=== PATIENT | female | born 1955 | race Caucasian/White ===

== ENCOUNTER 2017-06-10 07:30 | Inpatient (IN) ==
[~2017-06-10 07:30] MED LIST: ACETAMINOPHEN 500 MG TABLET PO ONE; DEXAMETHASONE 4 MG/ML INJECTION IVP ONE; FAMOTIDINE PB 20 MG/50 ML BAG IV ONE; LIDOCAINE 1% (10mg/ml) 2mL INJ PF SDV ID ONE; MELOXICAM 15 MG TABLET PO ONE; METOCLOPRAMIDE 10mg/2ml INJECTION IVP ONE; ONDANSETRON 4 MG/2 ML INJECTION IVP ONE; SALINE FLUSH 10ml SYRINGE IV PRN; TRANEXAMIC ACID 1,000 MG in NS 100 ML IV ONE
[2017-06-10] MEDS ORDERED: EPINEPHrine PF 0.25 MG, BUPIVACAINE 0.25% PF 30 ML, KETOROLAC INJ 60 MG in NS 30 ML OPSITE ONE (08:00)
[2017-06-10 09:35] VITALS: BMI 27.9
[2017-06-10] MEDS: LR 1,000 ML IV SCH ×2 (09:55→12:47)
[2017-06-10] MEDS: NOZIN NASAL SWAB NAS SCH ×6 (10:05→21:17)
--- NOTE | 2017-06-10 10:56 | Anesthesia Preoperative Report ---
Anesthesia Preoperative Record - Date and Time Date: 06/10/17 Preoperative Diagnosis: Rt ADE M16.11 Proposed Procedure: Right total hip replacement NPO Since Date: 06/10/17 NPO Since Time: 00:00 Allergies/Adverse Reactions: Allergies Allergy/AdvReac Type Severity Reaction Status Date / Time nitrofurantoin Allergy Intermediate Hives Verified 06/10/17 09:53 sulfanilamide Allergy Intermediate Hives Verified 06/10/17 09:53 - Vital Signs Vital Signs: Temperature 98.4 F 06/10/17 09:34 Pulse Rate 72 06/10/17 09:34 Respiratory Rate 15 06/10/17 09:34 Blood Pressure 134/64 06/10/17 09:34 Pulse Oximetry 96 06/10/17 09:34 Height and Weight: Height 5 ft 3 in Weight 71.6 kg Body Mass Index 27.9 - Medications Inpatient Medications: Current Medications Cefazolin Sodium (Kefzol) 1 g IVP PREOP ONE Stop: 06/10/17 11:31 Epinephrine HCl 0.25 mg/Bupivacaine HCl 30 ml/Ketorolac Tromethamine 60 mg/ Sodium Chloride 62.25 mls @ 1 mls/hr OPSITE INTRAOP ONE PRN Reason: Protocol Stop: 06/12/17 22:14 Lactated Ringer's (Lactated Ringers) 1,000 mls @ 50 mls/hr IV .Q20H TRAMAINE Last Admin: 06/10/17 09:55 Dose: 50 mls/hr Isopropyl Alcohol (Nozin Nasal Swab) 1 each KIN Q1M TRAMAINE Stop: 06/10/17 12:03 Last Admin: 06/10/17 10:11 Dose: 1 each Sodium Chloride (Iv Flush) 10 - 80 ml IV PRN PRN PRN Reason: [place] Home Medications: Home Medications Medication Instructions Recorded Confirmed Type Ultram (Tramadol) 50 mg tablet 50 mg PO BID tab 03/16/17 06/10/17 History cyclobenzaprine 10 mg tablet 5 - 10 mg PO HS PRN tab 03/16/17 06/10/17 History Fexofenadine [Maryjo] 180 mg PO DAILY PRN 06/01/17 06/10/17 History Is Patient on Beta [place]?: No - Medical History Respiratory: Reports: Asthma (as a child) DENIES: Sleep Apnea Cardiovascular: DENIES: Abnormal EKG, Angina, Arrhythmia, Congestive Heart Failure, Coronary Artery Disease, Heart Murmur, Hypertension, Hypotension, High Cholesterol, Myocardial Infarction, Rheumatic Fever, Valvular Heart Disease, Other Gastrointestional: Reports: Ulcer (PUD), Other (IBS) Neuro/Musculoskeletal: Reports: HX.MS.OSAR (right hip), Depression (hx-no meds for 15 yrs) Renal/Endocrine: DENIES: Diabetes Mellitus Type 1, Diabetes Mellitus Type 2, Renal Failure, Dialysis, Thyroid Disease, Weight Loss, Weight Gain, Other Other History: DENIES: Anesthesia Reactions, Now, Blood Transfusions, Chemotherapy , Cancer, Hemophilia, Malignant Hyperthermia, Sickle Cell Disease, Other - Surgical History HEENT Surgeries: Reports: Ear Surgery (ventilation tube left ear), Tonsillectomy GI Surgery/Treatments: Reports: Cholecystectomy (lap jena), Colonoscopy ( tubular adenoma), EGD Reproductive Surgery/Treatment: Reports: Hysterectomy Anesthesia Reactions: None Hx Family Anesthesia Reaction: No History of Motion Sickness: No - Social History Smoking Status: Former smoker Substance Use Type: does not use Alcohol Intake Frequency: holidays/special occasions only - Pertinent Findings Laboratory: CBC and BMP 06/10/17 09:44 EKG: Sinus Rhythm - Physical Exam Respiratory Exam: Present: lungs clear, bilateral breath sounds equal Cardiovascular Exam: Present: regular rate and rhythm, no murmur - Airway Assessment Mallampati Score: III TMD: 3 Fingerbreadths Neck Extension: fair Overall Assessment: may be difficult intubation (small mouth opening/large tongue) - ASA ASA Score: 2 - Plan Anesthesia: Neuroaxial Regional/Trunk Block: Spinal - Discussion Discussion: Discussed risks/options/alternatives of anesthesia and questions answered. Patient consents. Nursing pain assessment noted. Present for Discussion: spouse Attestation Statement: Prior to the delivery of any anesthetic medication, I examined the patient, developed the plan, obtained the patient's consent and discussed the risk and benefits of the procedure with the patient/guardian. - Additional Information Seen by Anesthesia: Yes
[2017-06-10] MEDS ORDERED: CEFAZOLIN 1 G INJECTION IVP ONE (11:30)
[2017-06-10] MEDS ORDERED: ANESTHESIA MIXTURE 50 ML IV ONE (11:30)
[2017-06-10] MEDS ORDERED: VANCOMYCIN 1,000 MG INJECTION ONE (11:53)
[2017-06-10] MEDS ORDERED: MIDAZOLAM 2mg/2ml INJECTION ONE (12:10)
[2017-06-10] MEDS ORDERED: VANCOMYCIN 1,000 MG INJECTION IAR ONE (12:44)
[2017-06-10] MEDS ORDERED: LIDOCAINE 2% (100mg/5mL) 5ml PF SDV ONE (12:48)
[2017-06-10] MEDS ORDERED: PHENYLEPHRINE INJ 10 MG/ML VIAL IV ONE (13:34)
--- NOTE | 2017-06-10 13:38 | Operative Note ---
- Procedure Preoperative Diagnosis: Left hip primary degenerative joint disease Postoperative Diagnosis: Same as preoperative diagnosis. Surgeon: Lesley Kohler MD Blueprint Assembler: Thompson Carlson Complications: None. Anesthesia: Spinal. Estimated Blood Loss: See Anesthesia Record. Fluids: Please see Anesthesia Record. Description of Procedure: Mrs. Gutierres and her left hip were identified and marked in the preoperative holding area. She was brought back to the operating suite and spinal anesthetic was administered. She was then placed in a lateral decubitus position with her left hip up. The left lower extremity was prepped and draped in my normal sterile fashion. Timeout was performed. The Emissary robotic arm was used to assist with the surgery. A pelvic array was placed into the iliac crest through three small incisions. A direct superior approach was utilized. An approximately 12 cm incision was made in the skin and dissection carried down to the muscle fascia which was then split in line with skin incision. A The short external rotators were identified and tagged and detached. A capsulotomy was performed and the hip dislocated. A femoral neck osteotomy was performed at the pre-templated level measuring down from the femoral head. The head was removed and acetabulum exposed. Labrum was removed. The acetabulum was then registered with the robot. The robotic arm was then used to ream with a 49 reamer. The robot then was again used to place a 50 Trident cup in 40 of tilt and 22 of anteversion. A liner was then placed. The proximal femur was exposed and prepared with a cookie cutter followed by reaming and broaching to a size 4. We trialed with a 0 head. After thorough irrigation a final Accolade 2 size 4 stem with 127 neck was placed. Leg length and offset were checked with the robot and were good. A final standard 36 mm ceramic head was placed and the hip reduced. Betadine solution was used to irrigate throughout the case. It was followed by normal saline irrigation. Joint cocktail was injected throughout soft tissue. The capsulotomy was repaired with Ethibond. Short external rotators were also repaired with Ethibond. 1 g of vancomycin powder was placed into the wound. The muscle fascia was then repaired with #1 Vicryl. I then left my assistant director of residence life to close the subcutaneous tissue with 2-0 Vicryl followed by running 4-0 Monocryl skin followed by Dermabond and a sterile dressing. The patient with any placed back into supine position and taken to recovery room in the care of anesthesia.
--- NOTE | 2017-06-10 14:23 | XRay Report ---
Indication: postoperative image PROCEDURE: XR pelvis w/ 1 view RT hip: Encounter: Initial Comparison: December 29, 2016 Findings: Postoperative changes of right total hip replacement are seen. There is expected postoperative subcutaneous gas. No evidence of hardware failure or acute fracture. No retained radiopaque surgical instruments or sponges seen. Impression: New right total hip prosthesis without evidence of immediate complication. .
[2017-06-10] MEDS ORDERED: LORazepam 1 MG TABLET PO PRN (14:39)
[2017-06-10] MEDS ORDERED: DiphenhydrAMINE 50 MG/ML INJECTION IVP PRN (14:39)
[2017-06-10] MEDS ORDERED: NOZIN NASAL SWAB NAS ONE (14:39)
[2017-06-10] MEDS ORDERED: ONDANSETRON 4 MG/2 ML INJECTION IVP PRN (14:39)
[2017-06-10] MEDS ORDERED: DiphenhydrAMINE 25 MG CAPSULE PO PRN (14:39)
[2017-06-10] MEDS: NS 1,000 ML IV SCH (14:41)
[2017-06-10] MEDS: ACETAMINOPHEN 325 MG TABLET PO SCH ×2 (17:36→20:33)
[2017-06-10] MEDS: TRAMADOL 50 MG TABLET PO PRN ×2 (17:36→20:38)
[2017-06-10] MEDS: NAPROXEN 220 MG TABLET PO SCH (20:32)
[2017-06-10] MEDS: DOCUSATE SODIUM 100 MG CAPSULE PO SCH (20:33)
[2017-06-10] MEDS: ASPIRIN *EC* 81 MG TABLET PO SCH (20:33)
[2017-06-10] MEDS: CEFAZOLIN 1 G in NS 50 ML IV SCH (20:39)
[2017-06-10] MEDS ORDERED: SENNOSIDES 8.6 MG TABLET PO SCH (21:00)
[2017-06-11] MEDS: TRAMADOL 50 MG TABLET PO PRN ×3 (00:21→13:04)
[2017-06-11] MEDS: NS 1,000 ML IV SCH (03:05)
[2017-06-11] MEDS: CEFAZOLIN 1 G in NS 50 ML IV SCH (03:05)
[2017-06-11] MEDS: NOZIN NASAL SWAB NAS SCH ×2 (05:46→14:29)
[2017-06-11] MEDS: NAPROXEN 220 MG TABLET PO SCH (08:44)
[2017-06-11] MEDS: ASPIRIN *EC* 81 MG TABLET PO SCH (08:45)
[2017-06-11] MEDS: DOCUSATE SODIUM 100 MG CAPSULE PO SCH (08:45)
[2017-06-11] MEDS: ACETAMINOPHEN 325 MG TABLET PO SCH ×2 (08:45→13:05)
--- NOTE | 2017-06-11 08:52 | Orthopedic Progress Note ---
Date: Date: 06/11/17 Time: 848 Subjective/Severity of Illness: Patient has done well overnight, has been up ambulating with good tolerance. Does reports some soreness on right thigh, but controlled with pain medication regimen. Denies any chest pain, shortness, nausea. Orthopedic Exam Vital signs: Temperature 96.6 F L 06/11/17 07:35 Pulse Rate 71 06/11/17 07:35 Respiratory Rate 16 06/11/17 07:35 Blood Pressure 109/64 06/11/17 07:35 Pulse Oximetry 94 06/11/17 07:35 - Constitutional General Appearance: Present: alert, orientated x3, well developed, well nourished - Respiratory Exam Present: non-labored - Cardiovascular Exam Present: pedal pulses intact - Extremities Exam Absent: calf tenderness - Integumentary Exam Present: pink, warm, dry, intact Comments: mepilex dressing c/d/i. - Neurological Exam Present: intact to light touch, no deficits Full ROM of right ankle. - Labs Result Diagrams: 06/11/17 03:50 06/11/17 03:50 Abnormal lab results 06/10/17 06/11/17 06/11/17 Range/Units 09:44 03:50 03:50 Hgb 11.2 L D (12-16) GM/DL Hct 33.4 L D (36-46) % MPV 8.6 L (9.4-12.4) UM3 Chloride 108 H (98-107) MEQ/L Glucose 117 H (65-110) MG/DL H & H 06/10/17 06/11/17 Range/Units 09:44 03:50 Hgb 13.4 11.2 L D (12-16) GM/DL Hct 39.9 33.4 L D (36-46) % Orthopedic Assessment and Plan (1) Primary osteoarthritis of right hip Status: Acute Assessment and Plan: Current anti-coagulation protocol with ASA 81mg BID x6 weeks and SCDs for VTE prophylaxis. PT/OT services to improve independent function. Discharge Planning per Case Management. - Anticoagulation Therapy Anticoagulation: ASA 81 mg PO BID x6 weeks Hospital Course Summary Disclaimer: The visit summary below is not to be considered part of the above Progress Note.
[2017-06-11] MEDS ORDERED: POLYETHYL GLYCOL 3350 17gm PACKET PO SCH (09:00)
--- NOTE | 2017-06-11 11:50 | Discharge Summary ---
Orthopedic Discharge Info Date of admission: 06/10/17 09:14 Anticipated date of discharge: 06/11/17 Primary care physician: Karrie Ahuja DO Attending Physician: Danial Kohler MD Consults: 06/04/17 06:00 Consult to Anesthesiology [CONS] Routine Reason For Exam: Preoperative Assessment 06/10/17 14:39 Case Management Consult [CONS] Routine Reason For Exam: Discharge Planning DME-Walker [CONS] Routine Height: 5 ft 3 in Weight: 71.6 kg Total Joint Outpatient Therapy [CONS] Routine Comment: Remove dressing in 2 weeks - Discharge Diagnosis (1) Primary osteoarthritis of right hip Status: Acute - Laboratory Result Diagrams: 06/11/17 03:50 06/11/17 03:50 Laboratory: Abnormal lab results 06/11/17 06/11/17 Range/Units 03:50 03:50 Hgb 11.2 L D (12-16) GM/DL Hct 33.4 L D (36-46) % Chloride 108 H (98-107) MEQ/L Glucose 117 H (65-110) MG/DL H & H 06/10/17 06/11/17 Range/Units 09:44 03:50 Hgb 13.4 11.2 L D (12-16) GM/DL Hct 39.9 33.4 L D (36-46) % Orthopedic Discharge HPI - HPI Comments This patient was admitted for elective surgical tx of end stage degenerative joint disease that failed to respond to conservative treatment. Further details of this is found in the admission H&P. Orthopedic Hospital Course Hospital course: 06/11/17 11:48 After appropriate preoperative clearance and signing of operative consent, the patient was given IV antibiotics, according to orthopedic protocol. The patient was taken to the operating room and underwent elective total right hip joint arthroplasty. Following surgery, antibiotics were discontinued less than 24 hours according to joint protocol. Appropriate anticoagulants were initiated with ASA 81mg x6 weeks and SCDs added for DVT prevention. The dressing was clean, dry, and intact. Pain control was obtained via multimodal approach. Bowel motivation addressed with scheduled and PRN medications. Early mobilization was initiated through PT services. Discharge arrangements made by a collaborative effort between the patient and Case Management. Follow-up is scheduled in 2-3 weeks. Discharge instructions given by orthopedic providers and nursing staff at discharge. Discharge stable and in good condition. 06/11/17 11:49 Care extended to > 2 midnight stays?: No Discharge Plan - Med Rec/Dispo Referrals/Follow Up: Danial Kohler MD [Physician] - 07/05/17 2:15 pm Additional Instructions: [facility] ON 06/15/2017 AT 1:00PM FOR PHYSICAL THERAPY EVAL. PHONE [phone] Prescriptions: New Aspirin *EC* [Ecotrin] 81 mg PO BID tab Docusate Sodium [Colace] 100 mg PO BID cap Milk of Magnesia [Mom] 30 ml PO DAILY udc Naproxen [Aleve (Naproxen) 220 mg] 440 mg PO BID tab Tramadol [Ultram] 50 - 100 mg PO Q6H PRN #60 tab PRN Reason: Pain Acetaminophen [Tylenol] 650 mg PO QID tab PEG 3350 17gm PACKET [Miralax] 17 gm PO DAILY packet Continue Fexofenadine [Maryjo] 180 mg PO DAILY PRN PRN Reason: Allergy Symptoms cyclobenzaprine 10 mg tablet 5 - 10 mg PO HS PRN tab PRN Reason: Muscle Spasm No Action Ultram (Tramadol) 50 mg tablet 50 mg PO BID tab - Dismissal Complete Discharge Instructions are:: Complete
[2017-06-11 13:46] VITALS: BP 118/65; PULSE 75; RESP 18; TEMP 97.1; O2SAT 95
[2017-06-11] MEDS ORDERED: SENNOSIDES 8.6 MG TABLET PO PRN (13:53)
[2017-06-12] MEDS ORDERED: BISACODYL 10 MG SUPPOSITORY RECTALLY SCH (20:00)
== END 2017-06-11 14:23 | disposition home or self-care (01) | DRG 470 ==
LOC: NMC.PERIOP 09:14 → SRG 14:34
PROVIDERS: ADMIT Orthopaedic Surgery; ATTEND Orthopaedic Surgery